=== PATIENT | female | born 1970 | race Caucasian/White ===

== ENCOUNTER 2022-04-03 16:18 | Outpatient (CLI) | payer OTHER, SELFPAY | END 2022-04-03 16:19 | disposition home or self-care (01) | LOC: NFLDREF 04-11 10:50 | PROVIDERS: PCP Family Medicine; Visit Provider Pediatrics | DX: Z20.822 Contact with and (suspected) exposure to COVID-19 (principal) | CPT/HCPCS: 87635 ==

== ENCOUNTER 2022-04-07 16:30 | Outpatient (CLI) | payer OTHER, SELFPAY | END 2022-04-07 16:31 | disposition home or self-care (01) | LOC: NFLDREF 04-11 13:43 | PROVIDERS: PCP Family Medicine; Visit Provider Pediatrics | DX: Z20.822 Contact with and (suspected) exposure to COVID-19 (principal) | CPT/HCPCS: 87635 ==

== ENCOUNTER 2024-11-10 10:48 | Outpatient (CLI) | payer OTHER, SELFPAY ==
[2024-11-12 04:50] LABS: HPV Source Cervical/Vag; HPV, High Risk by TMA Not Detected
== END 2024-11-10 10:49 | disposition home or self-care (01) ==
PROVIDERS: PCP Family Medicine; Visit Provider Family Medicine
DX: Z00.01 Encounter for general adult medical examination with abnormal findings (principal); E78.5 Hyperlipidemia, unspecified; F41.8 Other specified anxiety disorders; R53.83 Other fatigue; Z12.4 Encounter for screening for malignant neoplasm of cervix; Z11.51 Encounter for screening for human papillomavirus (HPV); Z13.21 Encounter for screening for nutritional disorder
CPT/HCPCS: 80053; 82607; 84443; 87624; 87625; 88141; 88142

== ENCOUNTER 2025-02-15 09:06 | Outpatient (CLI) | payer OTHER, SELFPAY ==
--- NOTE | 2025-02-15 09:15 | CRLHL7_ITS ---
For Patients: As a result of the Century Cures Act, medical imaging exams and procedure reports are released immediately into your electronic medical record. You may view this report before your referring provider. If you have questions, please contact your health care provider. INDICATION: BILATERAL SCREENING MAMMOGRAM, ASYMPTOMATIC 54 Y/O FEMALE COMPARISON: 02/17/2023, 05/18/2020, 12/08/2018 TECHNIQUE: Digital mammogram in CC and MLO projections including computer-aided detection (CAD) and tomosynthesis. BREAST COMPOSITION: There are scattered areas of fibroglandular density. FINDINGS: No suspicious findings. ASSESSMENT: BI-RADS 1 Negative RECOMMENDATION: Annual screening mammogram. A lay language report of this examination will be provided to the patient. Dictated by: Don Vega MD @ 02/20/2025 10:10:01 (Electronically Signed)
== END 2025-02-15 09:07 | disposition home or self-care (01) ==
PROVIDERS: PCP Family Medicine; Visit Provider Family Medicine
DX: Z12.31 Encounter for screening mammogram for malignant neoplasm of breast (principal)
CPT/HCPCS: 77063; 77067